=== PATIENT | male | born 1945 | race Caucasian/White ===

== ENCOUNTER 2024-01-24 07:09 | Day surgery (SDC) | payer MEDICARE, SELFPAY ==
[2023-11-29 10:19] VITALS: BMI 26.6
[2024-01-02 11:27] VITALS: BMI 26.9
--- NOTE | 2024-01-24 06:54 | WPDANESEPPF ---
Anes - Initial Pre Proc Eval Procedure: Operation Date: 01/24/24 09:30 Proposed Procedures p Diagnostic Colonoscopy - Kristopher Montelongo MD Date/Time: 01/24/24 06:54 Surgeon: Kristopher Montelongo MD Pre Op Diagnosis: History of Colon Polyps Patient Data Age: 78 Gender: M Height: 1.83 m Weight: 90 kg Allergies Allergy/AdvReac Type Severity Reaction Status Date / Time No Known Allergies Allergy Verified 01/24/24 08:12 Home Medications Medication Instructions Recorded Confirmed Type cetirizine 10 mg tablet (Zyrtec) 10 mg PO DAILY PRN Allergic 11/25/21 01/24/24 History Symptoms ferrous sulfate 324 mg (65 mg 324 mg PO DAILY 11/25/21 01/24/24 History iron) tablet,delayed release Patient hx anesthesia problems: none Family hx anesthesia problems: none Results Review: All pre-operative results and documents have been reviewed as part of the pre-operative evaluation. [facility] Past Medical History Medical History (Updated 01/24/24 @ 06:55 by Jose Luis Weaver DO) Iron deficiency anemia Family History Family History Father Family history of malignant neoplasm, Onset Age: 85 Patient's father is Mother Family history of diabetes mellitus in first degree relative, Onset Age: 67 Patient's mother is Diabetes mellitus Sibling Family history of lung cancer Family history of heart disease in male family member before age 55, Onset Age: 57 Family history of malignant neoplasm Social History Social History (Updated 11/28/23 @ 07:15 by Ashly Christopher [facility]) Smoking packs per day: 1.50 Smoking cigarettes per day: 30.0 Years smoked: 20 Smoking pack-years: 30.00 Smoking status: Former smoker Tobacco type: cigarettes Smoking end date: 02/20/06 Alcohol intake: never Substance use: never Substance use type: does not use Current Housing: Decline to Answer Concerned About Future Housing: Decline to Answer Difficulty Paying Gas/Electric Bills: Decline to Answer Difficulty Paying for Meds: Decline to Answer Currently Unemployed: Decline to Answer Education: Decline to Answer Difficulty w/ Childcare or Family Care: Decline to Answer Living arrangements: with family Spiritual care concerns: No Anes - Eval Final PreProcedure Day of Procedure 01/24/24 06:54 Patient weight: overweight Heart: regular rate and rhythm Lungs: clear to auscultation Airway: Mallampati scale class II Neurological: alert and oriented Last oral intake: >/= 8 hours ASA classification: II Emergent: no Anesthetic plan: proceed Anesthesia type and monitoring: general GIVS and standard monitoring Results Review: All pre-operative results and documents have been reviewed as part of the pre-operative evaluation. Informed Consent: The patient's anesthetic plan and its attendant risks and benefits were discussed with the patient/family/POA. Questions were solicited and answers provided to the satisfaction of the patient/family/POA.
[2024-01-24 08:13] VITALS: BP 133/97; PULSE 84; RESP 16; TEMP 36.4; O2SAT 97; BMI 26.2
[2024-01-24] MEDS: LACTATED RINGERS 1,000 ML 150 ML IV CONT (08:29)
--- NOTE | 2024-01-24 09:12 | P.HP_ITS ---
History of Present Illness History of Present Illness Consent: Risks, benefits, and alternatives have been discussed and questions answered. Patient agrees to proceed with procedure. Chief complaint: History of Colon Polyps Narrative: Lien Pinedo is a 78 year old male presents for screening colonoscopy. Patient has a history of benign adenomatous colon polyp removed from the colon in 2012. Patient's current weight appetite and bowel movements are normal. Family history is noncontributory. Review of Systems Review of Systems: All systems reviewed & are unremarkable except as noted in HPI and below PMFSH Past Medical History Medical History (Updated 01/24/24 @ 06:55 by Jose Luis Weaver DO) Iron deficiency anemia Family History Family History Father Family history of malignant neoplasm, Onset Age: 85 Patient's father is Mother Family history of diabetes mellitus in first degree relative, Onset Age: 67 Patient's mother is Diabetes mellitus Sibling Family history of lung cancer Family history of heart disease in male family member before age 55, Onset Age: 57 Family history of malignant neoplasm Social History Social History (Updated 11/28/23 @ 07:15 by Ashly Christopher [facility]) Smoking packs per day: 1.50 Smoking cigarettes per day: 30.0 Years smoked: 20 Smoking pack-years: 30.00 Smoking status: Former smoker Tobacco type: cigarettes Smoking end date: 02/20/06 Alcohol intake: never Substance use: never Substance use type: does not use Current Housing: Decline to Answer Concerned About Future Housing: Decline to Answer Difficulty Paying Gas/Electric Bills: Decline to Answer Difficulty Paying for Meds: Decline to Answer Currently Unemployed: Decline to Answer Education: Decline to Answer Difficulty w/ Childcare or Family Care: Decline to Answer Living arrangements: with family Spiritual care concerns: No Meds Home Medications and Allergies Home Medications Medication Instructions Recorded Confirmed Type cetirizine 10 mg tablet (Zyrtec) 10 mg PO DAILY PRN Allergic 11/25/21 01/24/24 History Symptoms ferrous sulfate 324 mg (65 mg 324 mg PO DAILY 11/25/21 01/24/24 History iron) tablet,delayed release Allergies Allergy/AdvReac Type Severity Reaction Status Date / Time No Known Allergies Allergy Verified 01/24/24 08:12 Vital Signs Vital Signs - 24 hr 01/24/24 08:13 Temperature 97.6 F Pulse Rate 84 Respiratory Rate 16 Blood Pressure 133/97 H Pulse Oximetry 97 Oxygen Delivery Room Air Exam Narrative: Physical exam reveals patient to be alert. Vital signs stable. HEENT exam is unremarkable. Patient is anicteric. Lungs are clear to auscultation and to percussion. Heart is without murmur or extra sounds. Abdomen bowel sounds are present soft nontender with no organomegaly. Digital external rectal exam is normal. Assessment and Plan Assessment and plan (1) History of colon polyps: Code(s): Z86.0100 - Personal history of colon polyps, unspecified Status: Acute Assessment and Plan: Patient has a history of colon polyps. Plan for surveillance colonoscopy now. Further recommendations may be given after endoscopy.
[2024-01-24 10:22] VITALS: BP 87/64; PULSE 68; RESP 18; O2SAT 96
[2024-01-24 10:32] VITALS: BP 98/65; PULSE 66; RESP 16; O2SAT 96
[2024-01-24 10:42] VITALS: BP 119/86; PULSE 62; RESP 15; O2SAT 98
--- NOTE | 2024-01-24 12:46 | WPDANESPN ---
Anes - Prog Note Post-Op Date/Time: 01/24/24 12:46 Cardiovascular status: normal Respiratory status: normal Airway patency: baseline Mental status: baseline Post-Op hydration status: normal Vital Signs: Last Vital Signs Temp 36.4 C 01/24/24 08:13 Pulse 62 01/24/24 10:42 Resp 15 01/24/24 10:42 BP 119/86 01/24/24 10:42 Pulse Ox 98 01/24/24 10:42 O2 Del Method Room Air 01/24/24 10:42 Pain Score (VAS): 0 I/O: Intake & Output 01/23/24 01/24/24 01/24/24 23:59 07:59 15:59 Intake Total 900 Balance 900 Post-procedural complaints: none Patient Feedback: Patient satisfied with anesthetic care. Other Findings: Patient vital signs back to baseline. Patient denies nausea and vomiting. Patient's pain under control. Patient OK for discharge.
== END 2024-01-24 10:57 | disposition home or self-care (01) ==
PROVIDERS: PCP Nurse Practitioner; Visit Provider Internal Medicine Gastroenterology
PROC: 0DJD8ZZ Inspection of Lower Intestinal Tract, Via Natural or Artificial Opening Endoscopic (ICD-10-PCS; CPT 45378; principal; 2024-01-24 09:30)
DX: Z86.0100 Personal history of colon polyps, unspecified (principal); D12.5 Benign neoplasm of sigmoid colon; K64.8 Other hemorrhoids
CPT/HCPCS: 45385

== ENCOUNTER 2024-01-24 07:35 | Outpatient (NON) | payer MEDICARE, SELFPAY | END 2024-01-24 07:36 | disposition home or self-care (01) | LOC: ANHLAB 01-25 07:36 | PROVIDERS: PCP Nurse Practitioner; Visit Provider Internal Medicine Gastroenterology | DX: D12.5 Benign neoplasm of sigmoid colon (principal); Z86.0100 Personal history of colon polyps, unspecified | CPT/HCPCS: 88305 ==